=== PATIENT | male | born 2000 | race Caucasian/White ===

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

== ENCOUNTER 2022-06-10 03:03 | Emergency (ER) | payer OTHER ==
[2022-06-10] MEDS ORDERED: IBUPROFEN 600 MG TABLET (FP) PO ONE (03:42)
[2022-06-10 04:02] VITALS: BP 152/83; PULSE 72; RESP 18; TEMP 98.9; BMI 37.3
== END 2022-06-10 04:05 | disposition home or self-care (01) ==
LOC: JER 03:03
DX: H66.90 Otitis media, unspecified, unspecified ear (principal)
CPT/HCPCS: 99283-25